=== PATIENT | female | born 1975 | race Caucasian/White ===

== ENCOUNTER → 2017-06-15 | Outpatient (CLI) | payer BC ==
--- NOTE | 2017-06-15 15:20 | US ---
HISTORY: Six-month follow-up right breast nodules Study: Right breast ultrasound Comparison: October 13, 2016 Technique: Multiple grayscale and color Doppler images of the right breast were obtained. Findings: Sonographic evaluation of the upper outer quadrant right breast was performed. There is scattered arlen maria isabel ectasia. Several simple parenchymal cysts are noted. A background of fibrocystic changes are note d as well. Previously described 8 mm anechoic cyst at 10 o'clock has demonstrated slight interval enl argement measuring 10 mm with internal echoes now noted but with otherwise predominantly benign featu res favored to represent a complex cyst and for which continued short-term sonographic follow-up will be necessary. There is a 5 mm benign appearing intramammary lymph node at 11 o'clock with a central echogenic fatty fibrovascular core and without focal or diffuse cortical thickening felt to correspon d to the previously described new nodule. No pathologic lymphadenopathy is identified. No suspicious cystic or solid nodules are identified to warrant biopsy at this time. IMPRESSION: Probably benign right breast nodules for which six-month bilateral mammography and right breast ultra sound are recommended. BI-RADS 3. Probably benign findings; short interval follow-up suggested. * 0 (ZERO) - ASSESSMENT INCOMPLETE; ADDITIONAL IMAGING IS NEEDED. * 1/1 (ONE) - NEGATIVE. * 2/II (TWO) - BENIGN FINDINGS. * 3/III (THREE) - PROBABLY BENIGN FINDING; SHORT INTERVAL FOLLOW-UP SUGGESTED. * 4/IV (FOUR) - SUSPICIOUS ABNORMALITY; BIOPSY SHOULD BE CONSIDERED. * 5/V (FIVE) - HIGHLY SUSPICIOUS OF MALIGNANCY; BIOPSY SHOULD BE PERFORMED. * 6/ (SIX) - KNOWN MALIGNANCY. A NEGATIVE X-RAY REPORT SHOULD NOT DELAY BIOPSY IF A DOMINANT OR CLINICALLY SUSPICIOUS MASS IS PRESENT; 4 TO 8 PERCENT OF CANCERS ARE NOT IDENTIFIED BY X-RAY. A NEGA TIVE REPORT MAY REINFORCE THE CLINICAL IMPRESSION. ADENOSIS AND DENSE BREASTS MAY OBSCURE AN UNDERLY ING NEOPLASM. Reported By:
== END ==
LOC: RAD 13:39
PROVIDERS: ATTEND Internal Medicine
DX: R92.8 Other abnormal and inconclusive findings on diagnostic imaging of breast (principal)
CPT/HCPCS: 76642

== ENCOUNTER 2022-06-27 06:15 | Inpatient (IN) ==
[2022-06-27] MEDS ORDERED: ANCEF VIAL 1 GRAM IVP ONE (06:34)
[2022-06-27] MEDS ORDERED: D5 1/2 NS 1,000 ML 1,000 ML IV SCH (06:34)
[2022-06-27] MEDS ORDERED: NS 100 ML IV 100 ML ONE (06:41)
[2022-06-27] MEDS ORDERED: NS 1,000 ML IV 1,000 ML ONE ×2 (06:42→10:23)
[2022-06-27] MEDS ORDERED: BETADINE SOLN ONE (07:13)
[2022-06-27 07:17] VITALS: BMI 35.4
[2022-06-27] MEDS ORDERED: FENTANYL VIAL INJ 100 mcg ONE (07:21)
[2022-06-27] MEDS ORDERED: KETAMINE HCL ONE (07:21)
[2022-06-27] MEDS ORDERED: SUPRANE ONE (07:21)
[2022-06-27] MEDS ORDERED: BENADRYL INJ 50 MG VIAL ONE (07:40)
[2022-06-27] MEDS ORDERED: PRECEDEX INJ VIAL IVP ONE (07:40)
[2022-06-27] MEDS ORDERED: DIPRIVAN VIAL 20 ML ONE (07:40)
[2022-06-27] MEDS ORDERED: PEPCID 20 MG VIAL ONE (07:41)
[2022-06-27] MEDS ORDERED: DECADRON INJ ONE (07:41)
[2022-06-27] MEDS ORDERED: ZEMURON 100 MG VIAL ONE (07:41)
[2022-06-27] MEDS ORDERED: ZOFRAN INJ 4 MG VIAL ONE (07:41)
[2022-06-27] MEDS ORDERED: NEO-SYNEPHRINE INJ ONE (07:51)
[2022-06-27] MEDS ORDERED: ROBINUL ONE (07:55)
[2022-06-27] MEDS ORDERED: DILAUDID INJ ONE (08:07)
[2022-06-27] MEDS ORDERED: BRIDION ONE (09:44)
[2022-06-27] MEDS ORDERED: PHENERGAN INJ 25 MG IM PRN (10:01)
[2022-06-27] MEDS ORDERED: ZOFRAN INJ 4 MG VIAL IVP PRN ×2 (10:01→11:06)
[2022-06-27] MEDS ORDERED: DILAUDID INJ IVP PRN (10:01)
[2022-06-27] MEDS ORDERED: BENADRYL INJ 50 MG VIAL IVP PRN ×2 (10:01→11:06)
[2022-06-27] MEDS ORDERED: BARHEMSYS INJ IVP PRN (10:01)
[2022-06-27] MEDS ORDERED: REGLAN INJ 10 MG VIAL IVP PRN (10:01)
[2022-06-27] MEDS ORDERED: NovoLIN R (or HumuLIN R) SUBCUT PRN ×2 (10:09→15:26)
[2022-06-27] MEDS ORDERED: MORPHINE SULFATE PCA 30 MG IVP PRN (11:06)
[2022-06-27] MEDS ORDERED: TORADOL 30 MG VIAL IVP PRN (11:06)
[2022-06-27] MEDS: NS 1,000 ML IV 1,000 ML IV SCH ×2 (16:03→19:14)
[2022-06-27] MEDS ORDERED: SNACK - Diabetic Appropriate PO SCH (20:00)
[2022-06-27] MEDS: SNACK - Diabetic Appropriate PO SCH (23:26)
[2022-06-28] MEDS: NS 1,000 ML IV 1,000 ML IV SCH ×3 (05:09→20:58)
[2022-06-28 05:13] LABS: BASOPHILS # (AUTO) 0.1 X10^3/uL (0.0-0.1); BASOPHILS % (AUTO) 0.6 % (0.2-1.0); EOSINOPHILS % (AUTO) 0.5 % (0.9-2.9); HEMATOCRIT 30.8 % (36.0-47.0); HEMOGLOBIN 10.7 g/dL (12.0-16.0); LYMPHOCYTES # (AUTO) 3.4 X10^3/uL (1.3-2.9); LYMPHOCYTES % (AUTO) 32.3 % (21.0-51.0); MEAN CORPUSCULAR HEMOGLOBIN 30.7 pg (27.0-34.0); MEAN CORPUSCULAR HGB CONC 34.8 g/dL (33.0-35.0); MEAN CORPUSCULAR VOLUME 88.2 fL (80.0-100.0); MEAN PLATELET VOLUME 8.5 fL (7.4-11.0); MONOCYTES # (AUTO) 0.6 x10^3/uL (0.3-0.8); MONOCYTES % (AUTO) 6.1 % (0.0-13.0); NEUTROPHILS # (AUTO) 6.4 x10^3/uL (2.2-4.8); NEUTROPHILS % (AUTO) 60.5 % (42.0-75.0); RED BLOOD COUNT 3.49 X10^6/uL (3.5-5.4); RED CELL DISTRIBUTION WIDTH 13.4 % (11.6-16.5); WHITE BLOOD COUNT 10.5 X10^3/uL (3.6-10.0)
[2022-06-28 05:18] LABS: BLOOD UREA NITROGEN 11 mg/dL (7-18); CALCIUM 7.4 mg/dL (8.5-10.1); CARBON DIOXIDE 24.4 mmol/L (21-32); CHLORIDE 106 mmol/L (98-107); CREATININE 0.44 mg/dL (0.55-1.02); SODIUM 142 mmol/L (136-145); eGFR NON BLACK RACES > 60 (>60)
[2022-06-28] MEDS ORDERED: KLOR-CON PO PRN (07:40)
[2022-06-28] MEDS ORDERED: MICRO K EXTEN CAP 10 MEQ PO PRN (07:40)
[2022-06-28] MEDS ORDERED: MAGNESIUM SULFATE 1 GRAM/100 mL PREMIX 1 G/100 ML BAG IV PRN (07:40)
[2022-06-28] MEDS ORDERED: POTASSIUM CHLORIDE LIQ 20 MEQ UDC PO PRN (07:40)
[2022-06-28] MEDS ORDERED: K-DUR TAB 20 MEQ PO PRN (07:40)
[2022-06-28] MEDS ORDERED: POTASSIUM CHL 40 MEQ/NS 0.45% 500 ML IV PRN (07:40)
[2022-06-28] MEDS ORDERED: POTASSIUM CHL 60 MEQ/NS 0.45% 500 ML IV PRN (07:40)
[2022-06-28] MEDS ORDERED: K-RIDER 10 MEQ/NS 100 ML 10 MEQ/100 ML BAG IV PRN (07:40)
[2022-06-28] MEDS ORDERED: MOTRIN TAB 800 MG PO PRN (07:44)
[2022-06-28] MEDS ORDERED: PERCOCET TAB 5/325 MG PO PRN (07:44)
[2022-06-28] MEDS: PATIENT'S HOME MEDICATION PO SCH (10:02)
[2022-06-28] MEDS: HYZAAR 50/12.5 MG PO SCH ×2 (10:02→10:03)
[2022-06-28] MEDS: COLACE CAP 100 MG PO SCH ×2 (10:03→20:56)
[2022-06-28] MEDS: ESTRACE PO SCH (10:04)
[2022-06-28] MEDS: TRICOR TAB 145 MG PO SCH (10:05)
[2022-06-28] MEDS: BACTROBAN TOPICAL OINT TOP SCH ×2 (14:07→20:59)
[2022-06-28] MEDS: SNACK - Diabetic Appropriate PO SCH (20:59)
[2022-06-29] MEDS: NS 1,000 ML IV 1,000 ML IV SCH ×2 (00:59→02:44)
[2022-06-29] MEDS: BACTROBAN TOPICAL OINT TOP SCH (05:04)
[2022-06-29] MEDS: COLACE CAP 100 MG PO SCH (09:08)
[2022-06-29] MEDS: HYZAAR 50/12.5 MG PO SCH ×2 (09:08→09:09)
[2022-06-29] MEDS: PATIENT'S HOME MEDICATION PO SCH (09:08)
[2022-06-29] MEDS: ESTRACE PO SCH (09:08)
[2022-06-29] MEDS: TRICOR TAB 145 MG PO SCH (09:08)
[2022-06-29 10:40] VITALS: BP 128/77
== END 2022-06-29 10:55 | disposition home or self-care (01) | DRG 743 ==
LOC: MED/SURG 06:15
PROVIDERS: ADMIT Specialist; ATTEND Specialist
DX: R10.2 Pelvic and perineal pain; N92.5 Other specified irregular menstruation; N85.8 Other specified noninflammatory disorders of uterus; E87.6 Hypokalemia; Z85.3 Personal history of malignant neoplasm of breast; N94.4 Primary dysmenorrhea